=== PATIENT | female | born 1995 | race Native Hawaiian/Other Pacific Islander ===

== ENCOUNTER 2018-06-10 18:19 | Emergency (ER) | payer OTHER ==
[~2018-06-10] VITALS: Ht 162.6 cm; Wt 67.1 kg
[2018-06-10 21:19] VITALS: BP 121/68; TEMP 98.8
== END 2018-06-10 21:15 | disposition home or self-care (01) ==
LOC: ED 18:19
DX: J06.9 Acute upper respiratory infection, unspecified (principal)
CPT/HCPCS: 81025; 87502; 87651; 99283

== ENCOUNTER 2021-05-02 08:58 | Outpatient (CLI) | payer OTHER | END 2021-05-02 19:12 | disposition home or self-care (01) | LOC: US 08:58 | PROVIDERS: ATTEND Registered Nurse | DX: R10.11 Right upper quadrant pain (principal) ==

== ENCOUNTER 2021-05-05 13:01 | Outpatient (CLI) | payer OTHER | END 2021-05-05 19:14 | disposition home or self-care (01) | LOC: NM 13:01 | PROVIDERS: ATTEND Registered Nurse | DX: R10.11 Right upper quadrant pain (principal) | CPT/HCPCS: A9537 ==

== ENCOUNTER 2022-12-19 08:29 | Outpatient (CLI) | payer OTHER | END 2022-12-19 19:56 | disposition home or self-care (01) | LOC: NM 08:29 | PROVIDERS: ATTEND Internal Medicine Gastroenterology | DX: R11.0 Nausea (principal) | CPT/HCPCS: A9541 ==